=== PATIENT | female | born 2000 | race Caucasian/White ===

== ENCOUNTER 2019-04-19 00:49 | Emergency (ER) | payer SELFPAY ==
[2019-04-19 02:09] LABS: APPEARANCE,URINE CLOUDY; BILIRUBIN,URINE NEGATIVE (NEGATIVE); COLOR,URINE YELLOW; GLUCOSE, URINE NEGATIVE (NEGATIVE); KETONES,URINE TRACE mg/dL (NEGATIVE); LEUKOCYTE ESTERASE,URINE LARGE (NEGATIVE); NITRITE,URINE NEGATIVE (NEGATIVE); PROTEIN,URINE 30 mg/dL (NEGATIVE); URINE SPECIFIC GRAVITY 1.028; UROBILINOGEN,URINE NEGATIVE mg/dL (<2.0)
[2019-04-19] MEDS ORDERED: CEPHALEXIN 500 MG CAPSULE PO ONE (02:14)
--- NOTE | 2019-04-19 02:17 | ER Document Report ---
HPI - HPI Time Seen by Provider: 04/19/19 01:58 Pain Level: 2 Context: Patient is a 19-year-old female that comes to the emergency department for chief complaint of painful urination. She also states that she has some congestion and sore throat that she has had for about a week. She has started taking [id number]-[id number] allergy medications for this. She denies nausea or vomiting, fever/chills, current abdominal pain, flank pain. She denies any diagnosed medical problems or daily medications. - REPRODUCTIVE Reproductive: DENIES: : Past Medical History - General Information source: Patient - Social History Smoking Status: Never Smoker Frequency of alcohol use: Occasional Drug Abuse: None Lives with: Spouse/Significant other Family History: Reviewed & Not Pertinent Surgical Hx: Negative - Immunizations Hx Diphtheria, Pertussis, Tetanus Vaccination: Yes Vertical Provider Document - CONSTITUTIONAL General Appearance: WD/WN, No Apparent Distress - HEENT HEENT: Atraumatic, Normocephalic. negative: Normal ENT Exam - Mild sinus congestion and nasal congestion. No sinus tenderness. Unremarkable ears bilaterally. Minimal erythema of the posterior pharynx without tonsillitis, uvula is normal, airway patent, tongue normal. - NECK Neck: Normal Inspection. negative: Lymphadenopathy-Left, Lymphadenopathy-Right - RESPIRATORY Respiratory: Breath Sounds Normal, No Respiratory Distress - CARDIOVASCULAR Cardiovascular: Regular Rate, Regular Rhythm - GI/ABDOMEN Gastrointestinal: Abdomen Soft, Abdomen Non-Tender. negative: Abdomen Tender - BACK Back: Normal Inspection. negative: CVA Tenderness-Right, CVA Tenderness-Left - MUSCULOSKELETAL/EXTREMETIES Musculoskeletal/Extremeties: MAEW, FROM, Non-Tender - NEURO Level of Consciousness: Awake, Alert, Appropriate Motor/Sensory: No Motor Deficit, No Sensory Deficit - DERM Integumentary: Warm, Dry, No Rash Course - Re-evaluation Re-evalutation: Patient with soft benign abdomen, no CVA tenderness, unremarkable vital signs. Mild congestion on exam, otherwise unremarkable. No pharyngitis noted, discussed with patient, decision was made to not perform strep throat testing. Patient does not have insurance either. Urinalysis definitely shows urinary tract infection, hCG is negative. Discussed with patient. Starting on antibiotics, discussed treatment of sinus congestion options, discussed return precautions. Patient states understanding and agreement. - Vital Signs Vital signs: Temp Pulse Resp BP Pulse Ox 98.3 F 78 16 118/64 97 04/19/19 01:35 04/19/19 01:35 04/19/19 01:35 04/19/19 01:35 04/19/19 01:35 - Laboratory Laboratory results interpreted by me: 04/19/19 01:30 Urine Protein 30 H Urine Ketones TRACE H Urine Blood LARGE H Ur Leukocyte Esterase LARGE H Discharge - Discharge Clinical Impression: Dysuria, Sinus congestion Urinary tract infection Qualifiers: Urinary tract infection type: site unspecified Hematuria presence: without hematuria Qualified Code(s): N39.0 - Urinary tract infection, site not specified Disposition: HOME, SELF-CARE Additional Instructions: Your work-up indicates a urinary tract infection. Take Keflex as prescribed to completion. Your evaluation also shows some sinus congestion, I recommend Sudafed nasal decongestant, Flonase nasal spray or equivalent, Benadryl at night to reduce the drainage, and antiallergy such as cetirizine. These are all [id number]. Follow-up with primary care. Return if you worsen including vomiting, fever, or any other concerning or worse earnest symptoms. Prescriptions: Fluconazole [Diflucan] 150 mg PO ONCE PRN #1 tablet PRN Reason: Cephalexin Monohydrate [Keflex 500 mg Capsule] 500 mg PO BID 7 Days #14 capsule
[2019-04-19 02:49] VITALS: BP 116/62
== END 2019-04-19 02:25 | disposition home or self-care (01) ==
LOC: ER 00:49
DX: N39.0 Urinary tract infection, site not specified (principal); R30.0 Dysuria; J02.9 Acute pharyngitis, unspecified; R09.81 Nasal congestion
CPT/HCPCS: 81001; 81025; 99283